=== PATIENT | female | born 2000 | race African-American/Black ===

== ENCOUNTER 2021-04-26 21:44 | Emergency (ER) | payer OTHER ==
[~2021-04-26] VITALS: Ht 160 cm; Wt 55.7 kg
[2021-04-26] MEDS ORDERED: BCP (21:53)
[2021-04-26] MEDS ORDERED: IRON27TA2 PO (21:53)
[2021-04-26 22:40] LABS: BASO % 0.5 % (0.0-1.0); HEMATOCRIT 41.3 % (36.0-47.0); HEMOGLOBIN 13.8 g/dl (12.0-15.5); LYMPH # 1.1 10^3/uL (1.5-5.0); LYMPH % 27.3 % (24.0-44.0); MEAN CORPUSCULAR HEMOGLOBIN 30.3 pg (27.0-33.0); MEAN CORPUSCULAR HGB CONC 33.4 g/dl (32.0-36.5); MEAN CORPUSCULAR VOLUME 90.8 fl (80.0-96.0); MONO # 0.4 10^3/uL (0.0-0.8); MONO % 8.6 % (2.0-8.0); NEUTROPHILS # 2.6 10^3/uL (1.5-8.5); NEUTROPHILS % 63.1 % (36.0-66.0); PLATELET COUNT, AUTOMATED 215 10^3/uL (150-450); RED BLOOD COUNT 4.55 10^6/uL (4.00-5.40); WHITE BLOOD COUNT 4.1 10^3/uL (4.0-10.0)
[2021-04-26 23:07] LABS: ALBUMIN 3.5 GM/DL (3.2-5.2); BILIRUBIN,DIRECT 0.1 MG/DL (0.0-0.2); BILIRUBIN,TOTAL 0.5 MG/DL (0.2-1.0); TOTAL PROTEIN 7.1 GM/DL (6.4-8.2)
[2021-04-26] MEDS ORDERED: ONDA4TAB6 PO (23:57)
[2021-04-27] MEDS ORDERED: ONDANSETRON 4 MG ORAL DISINTEGRATING TAB PO ONE
[2021-04-27 00:07] VITALS: BP 116/63
== END 2021-04-27 00:11 | disposition home or self-care (01) ==
LOC: M ED 21:44
DX: R11.2 Nausea with vomiting, unspecified (principal); R19.7 Diarrhea, unspecified
CPT/HCPCS: 36415; 80047; 80076; 81001; 83690; 84702; 85025; 87086; 99284; Q0162

== ENCOUNTER 2021-09-05 16:02 | Emergency (ER) | payer OTHER ==
[~2021-09-05] VITALS: Ht 157.5 cm; Wt 57.3 kg
[~2021-09-05 16:02] MED LIST: BCP; IRON27TA2 PO; ONDA4TAB6 PO
[2021-09-05] MEDS ORDERED: XULA1DIS TOP (16:13)
[2021-09-05 17:15] LABS: HEMATOCRIT 41.5 % (36.0-47.0); HEMOGLOBIN 13.8 g/dl (12.0-15.5); MEAN CORPUSCULAR HEMOGLOBIN 30.5 pg (27.0-33.0); MEAN CORPUSCULAR HGB CONC 33.3 g/dl (32.0-36.5); MEAN CORPUSCULAR VOLUME 91.8 fl (80.0-96.0); PLATELET COUNT, AUTOMATED 293 10^3/uL (150-450); RED BLOOD COUNT 4.52 10^6/uL (4.00-5.40); WHITE BLOOD COUNT 3.3 10^3/uL (4.0-10.0)
[2021-09-05] MEDS ORDERED: ONDANSETRON 4MG ORAL DISINTEGRATING TAB PO ONE (17:45)
[2021-09-05 18:14] VITALS: BP 113/65
== END 2021-09-05 18:39 | disposition home or self-care (01) ==
LOC: M ED 16:02
DX: N92.0 Excessive and frequent menstruation with regular cycle (principal); Z88.6 Allergy status to analgesic agent; Z79.899 Other long term (current) drug therapy

== ENCOUNTER 2024-01-28 20:46 | Emergency (ER) | payer OTHER ==
[~2024-01-28] VITALS: Ht 160 cm; Wt 60.0 kg
[~2024-01-28 20:46] MED LIST changes: +ONDA-282 PO; -ONDA4TAB6 PO; +XULA1DIS TOP
[2024-01-28 21:14] LABS: BASO % 0.2 % (0.0-1.0); HEMATOCRIT 37.1 % (36.0-47.0); HEMOGLOBIN 12.8 g/dl (12.0-15.5); LYMPH # 0.8 10^3/uL (1.5-5.0); LYMPH % 18.1 % (24.0-44.0); MEAN CORPUSCULAR HEMOGLOBIN 31.8 pg (27.0-33.0); MEAN CORPUSCULAR HGB CONC 34.5 g/dl (32.0-36.5); MEAN CORPUSCULAR VOLUME 92.3 fl (80.0-96.0); MONO # 0.4 10^3/uL (0.0-0.8); NEUTROPHILS # 3.3 10^3/uL (1.5-8.5); NEUTROPHILS % 72.3 % (36.0-66.0); PLATELET COUNT, AUTOMATED 195 10^3/uL (150-450); RED BLOOD COUNT 4.02 10^6/uL (4.00-5.40); WHITE BLOOD COUNT 4.6 10^3/uL (4.0-10.0)
[2024-01-28 21:40] LABS: APPEARANCE, URINE CLEAR (CLEAR); BACTERIA, URINE AUTO NEGATIVE (NEGATIVE); BILIRUBIN, URINE AUTO NEGATIVE (NEGATIVE); BLOOD, URINE BLOOD NEGATIVE (NEGATIVE); COLOR, URINE STRAW (YELLOW); GLUCOSE, URINE (UA) AUTO NEGATIVE (NEGATIVE); KETONE, URINE AUTO NEGATIVE (NEGATIVE); LEUKOCYTE ESTERASE, URINE AUTO NEGATIVE (NEGATIVE); NITRITE, URINE AUTO NEGATIVE (NEGATIVE); PROTEIN, URINE AUTO NEGATIVE (NEGATIVE); RBC, URINE AUTO 0 /HPF (0-3); SPECIFIC GRAVITY URINE AUTO 1.003 (1.002-1.035); SQUAMOUS EPITHELIAL CELL UR AU 0 /HPF (0-6); UROBILINOGEN, URINE AUTO 0.2 mg/dL (0.0-2.0); WBC, URINE AUTO 0 /HPF (0-3)
[2024-01-28 21:49] LABS: LIPASE 35 U/L (12-53)
[2024-01-28 22:15] LABS: ALBUMIN 3.3 G/DL (3.2-5.2); ALKALINE PHOSPHATASE 64 U/L (35-104); ALT/SGPT 14 U/L (7.0-40); AST/SGOT 22 U/L (<34); BILIRUBIN,DIRECT < 0.1 MG/DL (<0.4); BILIRUBIN,TOTAL 0.3 MG/DL (0.3-1.2); BLOOD UREA NITROGEN < 5 MG/DL (9-23); CALCIUM LEVEL 9.1 MG/DL (8.5-10.1); CARBON DIOXIDE LEVEL 24 MMOL/L (20-31); CHLORIDE LEVEL 104 MMOL/L (98-107); GLOMERULAR FILTRATION RATE > 60.0 (>60); GLUCOSE, FASTING 99 MG/DL (60-100); HCG, SERUM QUANTITATIVE 102099.2 MIU/ML (<4.2); POTASSIUM SERUM 4.3 MMOL/L (3.5-5.1); SODIUM LEVEL 137 MMOL/L (136-145); TOTAL PROTEIN 7.3 G/DL (5.7-8.2)
[2024-01-28] MEDS: NS (Normal Saline) 0.9% 1,000 ML IV ONE (22:45)
[2024-01-28] MEDS: ACETAMINOPHEN 325 MG TAB PO ONE (23:11)
[2024-01-28] MEDS: ONDANSETRON 4MG 2ML VIAL IV ONE (23:11)
[2024-01-29] MEDS ORDERED: ONDA-282 PO (00:19)
[2024-01-29 00:29] VITALS: BP 109/61; TEMP 98.3; O2SAT 99
== END 2024-01-29 00:32 | disposition home or self-care (01) ==
LOC: M ED 20:46
DX: R11.2 Nausea with vomiting, unspecified (principal); Z88.5 Allergy status to narcotic agent; Z91.018 Allergy to other foods; Z79.899 Other long term (current) drug therapy
CPT/HCPCS: 80048; 80076; 81001; 83690; 84702; 85025; 87086; 96361; 96374; 99284; J2405

== ENCOUNTER 2024-03-17 08:54 | Emergency (ER) | payer OTHER ==
[2024-03-17] MEDS ORDERED: PREN1CHW6 PO (09:33)
[2024-03-17] MEDS ORDERED: ROBI1LIQ9 PO (09:33)
== END 2024-03-17 09:00 | disposition admitted as inpatient to this hospital (09) ==
LOC: M ED 08:54
DX: Z53.21 Procedure and treatment not carried out due to patient leaving prior to being seen by health care provider (principal)

== ENCOUNTER 2024-03-17 09:01 | Outpatient (CLI) | payer OTHER ==
[~2024-03-17] VITALS: Ht 160 cm; Wt 69.9 kg
[2024-03-17 09:30] VITALS: BP 100/62
[2024-03-17] MEDS ORDERED: PREN1CHW6 PO (09:33)
[2024-03-17] MEDS ORDERED: ROBI1LIQ9 PO (09:33)
[2024-03-17] MEDS ORDERED: HOME MED LIST COMPLETE! XX SCH (09:35)
[2024-03-17 10:50] VITALS: O2SAT 100
== END 2024-03-17 11:35 | disposition home or self-care (01) ==
LOC: M LDO 09:01
PROVIDERS: ATTEND Advanced Practice Midwife
DX: O36.8120 Decreased fetal movements, second trimester, not applicable or unspecified (principal); O99.512 Diseases of the respiratory system complicating pregnancy, second trimester; O26.22 Pregnancy care for patient with recurrent pregnancy loss, second trimester; J06.9 Acute upper respiratory infection, unspecified; Z87.74 Personal history of (corrected) congenital malformations of heart and circulatory system; Z3A.21 21 weeks gestation of pregnancy
CPT/HCPCS: 59025; 87486; 87581; 87633; 87798; G0463